=== PATIENT | male | born 1955 | race Caucasian/White ===

== ENCOUNTER 2017-11-29 07:15 | Day surgery (SDC) | END 2017-11-29 12:15 | disposition home or self-care (01) ==

== ENCOUNTER 2018-07-31 07:17 | Day surgery (SDC) | payer OTHER ==
[2018-07-31] VITALS (9 sets, daily range): BP systolic 100–159; BP diastolic 63–86; PULSE 40–130; RESP 14–20; Ht 165.1 cm; Wt 60.3 kg
[~2018-07-31] VITALS: Ht 165.1 cm; Wt 60.3 kg
[~2018-07-31 07:17] MED LIST: GLIP10TA14 PO; LANT3I SC; METF500T3 PO
[2018-07-31] MEDS ORDERED: SIMVASTATIN PO (07:57)
[2018-07-31] MEDS ORDERED: MIDAZOLAM 1 MG/ML 2 ML INJ ONE ×2 (09:31)
[2018-07-31] MEDS ORDERED: FENTAnyl 50 MCG/ML VIAL ONE (09:31)
[2018-07-31] MEDS ORDERED: METOCLOPRAMIDE 10 MG INJ ONE (09:50)
[2018-07-31] MEDS ORDERED: METOCLOPRAMIDE 10 MG INJ IV ONE (10:00)
== END 2018-07-31 10:46 | disposition home or self-care (01) ==
LOC: GIL 07:17
PROVIDERS: ATTEND Internal Medicine Gastroenterology
DX: K64.8 Other hemorrhoids (principal); K64.4 Residual hemorrhoidal skin tags; E11.9 Type 2 diabetes mellitus without complications
CPT/HCPCS: 45378; 82962; J2250; J2765; J3010